=== PATIENT | male | born 1970 | race Caucasian/White ===

== ENCOUNTER 2022-07-26 15:04 | Outpatient (CLI) | payer BC, SELFPAY ==
[2022-07-26 22:00] LABS: Albumin* 4.7 g/dL (3.3-5.0); Chloride* 102 mmol/L (96-114); Sodium* 139 mmol/L (135-149)
[2022-07-26 22:01] LABS: Potassium* 4.2 mmol/L (3.6-5.1)
[2022-07-26 22:02] LABS: Cholesterol* 189 mg/dL (90-199)
[2022-07-26 22:03] LABS: Alanine Aminotransferase* 32 U/L (4-50); Alkaline Phosphatase* 67 U/L (40-150); Aspartate Amino Transferase* 20 U/L (12-35); Blood Urea Nitrogen* 17 mg/dL (7-30); Calcium* 9.4 mg/dL (8.4-10.6); Carbon Dioxide* 27 mmol/L (20-32); Estimated Glomerular Filt Rate 89 ml/min; Glucose* 89 mg/dL (60-115); Total Protein* 7.2 g/dL (6.0-8.3); Triglycerides* 133 mg/dL (40-149)
[2022-07-26 22:04] LABS: HDL Cholesterol* 30 mg/dL (>=40); LDL Cholesterol Calculated 132 mg/dL (<100)
[2022-07-27 00:17] LABS: PSA Screen* 1.05 ng/mL (0.10-4.00)
== END 2022-07-26 15:05 | disposition home or self-care (01) ==
PROVIDERS: PCP Family Medicine; Visit Provider Family Medicine
DX: Z00.00 Encounter for general adult medical examination without abnormal findings (principal); R79.89 Other specified abnormal findings of blood chemistry; Z82.49 Family history of ischemic heart disease and other diseases of the circulatory system; Z13.6 Encounter for screening for cardiovascular disorders; Z12.5 Encounter for screening for malignant neoplasm of prostate
CPT/HCPCS: 80053; 80061; 84153

== ENCOUNTER 2022-08-20 13:57 | Outpatient (CLI) | payer BC, SELFPAY ==
--- NOTE | 2022-08-20 14:00 | CRLHL7_ITS ---
For Patients: As a result of the Century Cures Act, medical imaging exams and procedure reports are released immediately into your electronic medical record. You may view this report before your referring provider. If you have questions, please contact your health care provider. INDICATION: Family history of abdominal aortic aneurysm TECHNIQUE: Ultrasound aorta with color Doppler analysis. COMPARISON: None FINDINGS: The proximal abdominal aorta measures 2.1 centimeter x 2.8 centimeter, mid aorta measures 1.9 centimeter x 1.9 centimeter, distal aorta measures 1.6 centimeter x 2.0 centimeter, right common iliac artery measures 1.3 centimeter x 1.5 centimeter, and the left common iliac artery measures 1.1 centimeter x 1.3 centimeter. There are no periaortic abnormalities evident. IMPRESSION: Normal ultrasound of the abdominal aorta. No sign of aneurysm. Dictated by Augustus Peña MD @ 08/20/2022 3:04:24 PM (Electronically Signed)
== END 2022-08-20 13:58 | disposition home or self-care (01) ==
PROVIDERS: PCP Family Medicine; Visit Provider Family Medicine
DX: Z82.49 Family history of ischemic heart disease and other diseases of the circulatory system (principal)
CPT/HCPCS: 76775

== ENCOUNTER 2023-05-14 08:20 | Outpatient (CLI) | payer BC, SELFPAY | END 2023-05-14 08:21 | disposition home or self-care (01) | LOC: NFLDREF 05-15 07:04 | PROVIDERS: PCP Family Medicine; Referring Provider Family Medicine; Visit Provider Family Medicine | DX: Z00.00 Encounter for general adult medical examination without abnormal findings (principal); C67.9 Malignant neoplasm of bladder, unspecified; N52.9 Male erectile dysfunction, unspecified; R63.5 Abnormal weight gain | CPT/HCPCS: 80053; 80061; 84153; 84443 ==

== ENCOUNTER 2024-03-27 12:25 | Outpatient (CLI) | payer BC, SELFPAY | END 2024-03-27 12:26 | disposition home or self-care (01) | LOC: LKVREF 12:25 | PROVIDERS: PCP Family Medicine; Visit Provider Nurse Practitioner Family | DX: L08.9 Local infection of the skin and subcutaneous tissue, unspecified (principal) | CPT/HCPCS: 86618 ==

== ENCOUNTER 2024-06-09 12:34 | Outpatient (CLI) | payer BC, SELFPAY | END 2024-06-09 12:35 | disposition home or self-care (01) | LOC: LKVREF 12:36 | PROVIDERS: PCP Family Medicine; Visit Provider Family Medicine | DX: Z00.00 Encounter for general adult medical examination without abnormal findings (principal); N52.9 Male erectile dysfunction, unspecified; C67.9 Malignant neoplasm of bladder, unspecified; D12.6 Benign neoplasm of colon, unspecified; Z12.5 Encounter for screening for malignant neoplasm of prostate | CPT/HCPCS: 80061; G0103 ==

== ENCOUNTER 2025-09-13 08:14 | Outpatient (CLI) | payer BC, SELFPAY | END 2025-09-13 08:15 | disposition home or self-care (01) | LOC: NFLDREF 09-17 10:09 | PROVIDERS: PCP Family Medicine; Referring Provider Family Medicine; Visit Provider Family Medicine | DX: Z13.9 Encounter for screening, unspecified (principal) | CPT/HCPCS: 80053; 80061; 87086; G0103 ==